=== PATIENT | female | born 1985 | race Caucasian/White ===

== ENCOUNTER 2017-08-09 21:27 | Emergency (ER) | payer BC ==
--- NOTE | 2017-08-09 23:09 | ER Document Report ---
ED General - General Chief Complaint: Leg Swelling Stated Complaint: LEG/FOOT SWELLING Time Seen by Provider: 08/09/17 22:13 Mode of Arrival: Ambulatory Information source: Patient TRAVEL OUTSIDE OF THE [place] IN LAST 30 DAYS: No - HPI Patient complains to provider of: left swollen LE Onset: Last week Onset/Duration: Gradual Quality of pain: Dull Severity: Mild Associated symptoms: None Exacerbated by: Movement, Walking Relieved by: Denies Similar symptoms previously: No Recently seen / treated by doctor: No Notes: Patient is a 31-year-old female that states she has left lower extremity swelling for the last week. It has been persistent and mildly tender. She states she is a smoker in does have Mirena. No history of blood clots in the past. No extensive car airplane rides or reason for venous stasis. - Related Data Allergies/Adverse Reactions: No Known Allergies Allergy (Unverified 10/07/14 12:02) Past Medical History - General Information source: Patient - Social History Smoking Status: Current Every Day Smoker Chew tobacco use (# tins/day): No Frequency of alcohol use: None Drug Abuse: None Lives with: Family Family History: Reviewed & Not Pertinent Patient has suicidal ideation: No Patient has homicidal ideation: No - Past Medical History Cardiac Medical History: Reports: None Pulmonary Medical History: Reports: None Neurological Medical History: Reports: None Endocrine Medical History: Reports: None Renal/ Medical History: Reports: None. Denies: Hx Peritoneal Dialysis Malignancy Medical History: Reports: None GI Medical History: Reports: None Musculoskeltal Medical History: Reports None Skin Medical History: Reports None Psychiatric Medical History: Reports: None Traumatic Medical History: Reports: None Past Surgical History: Reports: None - Immunizations Hx Diphtheria, Pertussis, Tetanus Vaccination: Yes Review of Systems - Review of Systems Constitutional: No symptoms reported EENT: No symptoms reported Cardiovascular: No symptoms reported Respiratory: No symptoms reported. denies: Hurts to breathe, Hemoptysis, Short of breath Gastrointestinal: No symptoms reported Genitourinary: No symptoms reported Female Genitourinary: No symptoms reported Musculoskeletal: See HPI Skin: No symptoms reported Hematologic/Lymphatic: No symptoms reported Neurological/Psychological: No symptoms reported Physical Exam - Vital signs Vitals: Temp Pulse Resp Pulse Ox 98.0 F 84 17 98 08/09/17 21:58 08/09/17 21:58 05/18/18 21:58 08/09/17 21:58 - Notes Notes: PHYSICAL EXAMINATION: GENERAL: Well-appearing, well-nourished and in no acute distress. Lying comfortably in bed texting when I came in the room HEAD: Atraumatic, normocephalic. EYES: Pupils equal round and reactive to light, extraocular movements intact, conjunctiva are normal. ENT: Nares patent, oropharynx clear without exudates. Moist mucous membranes. NECK: Normal range of motion, supple without lymphadenopathy LUNGS: Breath sounds clear to auscultation bilaterally and equal. No wheezes rales or rhonchi. HEART: Regular rate and rhythm without murmurs ABDOMEN: Soft, nontender, nondistended abdomen. No guarding, no rebound. No masses appreciated. Female : deferred Musculoskeletal: Normal range of motion, no pitting or edema. No cyanosis. Patient's left lower extremity below the knee is mildly swollen. Bilateral lower extremities are neurovascular intact. NEUROLOGICAL: Cranial nerves grossly intact. Normal speech, normal gait. Normal sensory, motor exams PSYCH: Normal mood, normal affect. SKIN: Warm, Dry, normal turgor, no rashes or lesions noted. Course - Re-evaluation Re-evalutation: 08/09/17 23:07 Unable to get a Doppler study of the left lower extremity because ultrasound is not in-house. Ordered d-dimer. If this is negative patient can come back tomorrow for ultrasound of her left lower extremity as she is hemodynamically stable. 08/10/17 00:13 Labs- All tests 24 hr 08/09/17 08/09/17 08/09/17 22:49 22:49 22:49 WBC 13.4 H RBC 4.48 Hgb 13.1 Hct 39.4 MCV 88 MCH 29.2 MCHC 33.3 RDW 13.1 Plt Count 315 Seg Neutrophils % 73.7 Lymphocytes % 20.1 Monocytes % 3.2 Eosinophils % 2.4 Basophils % 0.6 Absolute Neutrophils 9.9 H Absolute Lymphocytes 2.7 Absolute Monocytes 0.4 Absolute Eosinophils 0.3 Absolute Basophils 0.1 D-Dimer 0.75 H Serum HCG, Qual NEGATIVE - Vital Signs Vital signs: Temp Pulse Resp BP Pulse Ox 98.0 F 84 17 98 08/09/17 21:58 08/09/17 21:58 08/09/17 21:58 08/09/17 21:58 - Laboratory Result Diagrams: 08/09/17 22:49 Laboratory results interpreted by me: 08/09/17 08/09/17 22:49 22:49 WBC 13.4 H Absolute Neutrophils 9.9 H D-Dimer 0.75 H Discharge - Discharge Clinical Impression: Swelling of left lower extremity, Tobacco abuse, D-dimer, elevated Disposition: HOME, SELF-CARE Additional Instructions: Seen here today for left lower extremity swelling. The ultrasound test needed to rule out a clot in that left lower extremity as we discussed could not be ordered tonight. I did give you a Lovenox injection in case she do have a clot in your left lower extremity. Your d-dimer was elevated. Please return to the emergency department as we discussed to have left lower extremity ultrasound tomorrow morning. 1 of the nurses will call you in the morning to facilitate you getting the study. If for any reason you do not hear from us your to return to the emergency department in the morning for the testing Forms: Follow-Up Radiology Testing Referrals: GERRY ACUÑA PA-C [Primary Care Provider] - Follow up as needed
[2017-08-09 23:21] LABS: ABSOLUTE BASOPHILS # (AUTO) 0.1 10^3/uL (0.0-0.2); ABSOLUTE EOSINOPHILS # (AUTO) 0.3 10^3/uL (0.0-0.6); ABSOLUTE LYMPHOCYTES (AUTO) 2.7 10^3/uL (0.5-4.7); ABSOLUTE MONOCYTES (AUTO) 0.4 10^3/uL (0.1-1.4); ABSOLUTE NEUT (AUTO) 9.9 10^3/uL (1.7-8.2); BASOPHILS % (AUTO) 0.6 % (0-2); EOSINOPHILS % (AUTO) 2.4 % (0-6); HEMATOCRIT 39.4 % (36.0-47.0); HEMOGLOBIN 13.1 g/dL (12.0-15.5); LYMPHOCYTES % (AUTO) 20.1 % (13-45); MEAN CORPUSCULAR HEMOGLOBIN 29.2 pg (27.0-33.4); MEAN CORPUSCULAR HGB CONC 33.3 g/dL (32.0-36.0); MEAN CORPUSCULAR VOLUME 88 fl (80-97); MONOCYTES % (AUTO) 3.2 % (3-13); PLATELET COUNT 315 10^3/uL (150-450); RED BLOOD COUNT 4.48 10^6/uL (3.72-5.28); RED CELL DISTRIBUTION WIDTH 13.1 % (11.5-14.0); SEGMENTED NEUTROPHILS % (AUTO) 73.7 % (42-78); TOTAL CELLS COUNTED % (AUTO) 100 %; WHITE BLOOD COUNT 13.4 10^3/uL (4.0-10.5)
[2017-08-10] MEDS ORDERED: ENOXAPARIN SODIUM INJ 100 MG/1 ML DISP.SYRIN SUBCUT SCH (00:15)
[2017-08-10 01:01] VITALS: BP 119/72
--- NOTE | 2017-08-10 12:32 | ER Document Report ---
Doctor's Note Notes: 08/10/17 12:31 The venous Doppler techs called to report the patient's venous Doppler was negative for DVT. The nurse will call the patient with this information, and recommend that she elevate the leg, limit walking, and follow-up with her primary care provider.
== END 2017-08-10 01:01 | disposition home or self-care (01) ==
LOC: ER 21:27
DX: M79.89 Other specified soft tissue disorders (principal); R79.89 Other specified abnormal findings of blood chemistry; F17.200 Nicotine dependence, unspecified, uncomplicated; Z97.5 Presence of (intrauterine) contraceptive device
CPT/HCPCS: 36415; 84703; 85025; 85379; 99283

== ENCOUNTER → 2017-08-10 | Outpatient (CLI) | payer BC ==
--- NOTE | 2017-08-10 13:09 | XCELERA REPORT ---
[address] [address] Lower Extremity Venous Evaluation Name: DANA MARTINEZ Age: 31 yrs Gender: Female : 1985 Patient Status: Outpatient Patient Location: [facility] Study Date: 08/10/2017 11:46 AM Procedure: Color flow and duplex imaging of the veins of the left lower extremity as well as the right Common Femoral vein. Reason For Study: LLE SWELLING Ordering Physician: RIMA PEÑA Performed By: Walter Alberto Right Sided Venous Evaluation The right common femoral vein is fully compressible. Spontaneous and phasic flow is present in the right common femoral vein. Left Sided Venous Evaluation Normal vessel filling wall to wall, compression and augmentation as well as Colour flow down to the infrageniculate veins. Interpretation Summary No duplex evidence of DVT or obstruction in the left lower extremity nor in the right Common Femoral vein. : RIMA PEÑA > Chanadn Barroso
== END ==
LOC: RAD 11:15
PROVIDERS: ATTEND Emergency Medicine
DX: M79.89 Other specified soft tissue disorders (principal)
CPT/HCPCS: 93971